=== PATIENT | male | born 1985 | race Caucasian/White ===

== ENCOUNTER 2020-09-01 13:16 | Emergency (ER) | payer BC ==
[~2020-09-01] VITALS: Ht 182.9 cm; Wt 109.0 kg
--- NOTE | 2020-09-01 13:54 | EKG ---
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
--- NOTE | 2020-09-01 14:25 | PHYS DOC ---
Past History Past Medical History: No Pertinent History Past Surgical History: Other Additional Past Surgical Histo: left testicle removed Alcohol Use: None General Adult EDM: Chief Complaint: CHEST PAIN HPI: HPI: Patient is a 34-year-old male who presents with chest pain, shortness of breath that started yesterday. Patient states he was standing in the yard, letting his puppy use the bathroom, when he started having sudden chest pressure. Symptoms started about 2 PM yesterday. "All of a sudden my legs felt like they were going to go out, I was dizzy, sweating, short of breath". Patient reports that all symptoms resolved except he is continued to have shortness of breath, chest pain that radiates to his neck and left arm. Patient reports that pain is worse with movement and trying to take a deep breath. "I feel like the pain gets better if I push on my chest". "I had a hard time sleeping last night because I was so uncomfortable, the pain seems to also get better I feel like my hunch over". Patient describes chest pain today as a pulling or ripping sensation. "Arianna felt very tired especially with exertion". Patient does report a productive cough, started yesterday. Denies recent illness, fever, Covid. Denies nausea/vomiting/diarrhea. Patient states that he has had chest pain in the past and was seeing a national recruiter at that time. "I was a little worried because I have a family history of heart problems". "My dad's, brother , at 37 of a heart attack". Patient is hemodynamically stable upon arrival. Patient health history is hemophilia. Patient reports he smokes 1 pack a day. Review of Systems: Review of Systems: Constitutional: Denies fever or chills Eyes: Denies change in visual acuity HENT: Denies nasal congestion or sore throat Respiratory: Reports productive cough and shortness of breath Cardiovascular: Reports chest pain, describes as a pulling sensation GI: Denies abdominal pain, nausea, vomiting, bloody stools or diarrhea : Denies dysuria Musculoskeletal: Denies back pain or joint pain Integument: Denies rash Neurologic: Denies headache, focal weakness or sensory changes Endocrine: Denies polyuria or polydipsia Lymphatic: Denies swollen glands Psychiatric: Denies depression or anxiety Allergies: Allergies: Allergies Coded Allergies Type Severity Reaction Last Updated Verified codeine Allergy Unknown 09/01/20 Yes Physical Exam: PE: Constitutional: Well developed, well nourished, no acute distress, non-toxic appearance. [] HENT: Normocephalic, atraumatic, bilateral external ears normal, oropharynx moist, no oral exudates, nose normal. [] Eyes: PERRLA, EOMI, conjunctiva normal, no discharge. [] Neck: Normal range of motion, no tenderness, supple, no stridor. [] Cardiovascular:Heart rate regular rhythm, no murmur [] Lungs & Thorax: Bilateral breath sounds clear to auscultation [] Abdomen: Bowel sounds normal, soft, no tenderness Skin: Warm, dry, no erythema, no rash. [] Back: No tenderness, no CVA tenderness. [] Extremities: No tenderness, no cyanosis, no clubbing, ROM intact, no edema. [] Neurologic: Alert and oriented X 3, normal motor function, normal sensory function, no focal deficits noted. [] Psychologic: Affect normal, judgement normal, mood normal. [] Current Patient Data: Labs: Laboratory Tests Test 09/01/20 13:28 Troponin I Quantitative < 0.017 ng/mL (0-0.055) Vital Signs: Vital Signs Date Time Temp Pulse Resp B/P (MAP) Pulse Ox O2 Delivery O2 Flow Rate FiO2 09/01/20 13:17 97.9 79 16 133/80 (97) 96 Room Air EKG: EKG: [] Radiology/Procedures: Radiology/Procedures: []NDICATION: Reason: SHORTNESS OF BREATH / Spl. Instructions: / History: COMPARISON: February 14, 2011 FINDINGS: Single view of chest obtained. Cardiac silhouette is near the upper limits of normal in size. No definite new region of airspace consolidation. IMPRESSION: * No definite new region of airspace consolidation. Electronically signed by: Malcolm Esteban MD (09/01/2020 2:37 PM) [id number] Heart Score: C/O Chest Pain: Yes HEART Score for Chest Pain: HEART Score for Chest Pain Response (Comments) Value History Moderately Suspicious 1 ECG Normal 0 Age < 45 0 Risk Factors No Risk Factors 0 Troponin < Normal Limit 0 Total 1 Risk Factors: Risk Factors: DM, Current or recent (<one month) smoker, HTN, HLP, family history of CAD, obesity. Risk Scores: Score 0 - 3: 2.5% MACE over next 6 weeks - Discharge Home Score 4 - 6: 20.3% MACE over next 6 weeks - Admit for Clinical Observation Score 7 - 10: 72.7% MACE over next 6 weeks - Early Invasive Strategies Course & Med Decision Making: Course & Med Decision Making Pertinent Labs and Imaging studies reviewed. (See chart for details) [] Chest x-ray is negative. EKG shows sinus rhythm, 81 bpm. D-dimer is elevated at 1.18. CTA of chest ordered. Troponin is negative. Heart score of 1. CTA of chest is negative for PE. CTA does show a few areas with lung nodules. Suggested repeat imaging in 3 to 6 months to reassess. Patient given strict instructions to return to the emergency room with worsening symptoms or concerns. Patient given contact information for cardiology for consult. Bienvenido Disclaimer: Dragon Disclaimer: This electronic medical record was generated, in whole or in part, using a voice recognition dictation system. Departure Departure: Impression: Primary Impression: Chest pain made worse by breathing Disposition: 01 DC HOME SELF CARE/HOMELESS Condition: STABLE Referrals: PCP,NO (PCP) Patient Instructions: Chest Pain (Nonspecific), Bfyo-yr-Xrvy Additional Instructions: You were seen in the emergency room today for shortness of breath and chest pain. All of your labs were unremarkable. CTA was negative for acute abnormalities. The CTA does show Multiple bilateral pulmonary nodules and nodular opacities measuring up to 8 mm in size. These are nonspecific and may be inflammatory or infectious in etiology. Follow-up with a chest CT in 3 months i s recommended to exclude underlying neoplasm. I have also included cardiology. Please call and set up an appointment for a consult for further management. Please return to the emergency room with worsening symptoms or concerns. [address] of the [place], [place] [address] EMERGENCY DEPARTMENT GENERAL DISCHARGE INSTRUCTIONS Thank you for coming to [facility] (ED) today and trusting us with you care. We trust that you had a positivie experience in our Emergency Department. If you wish to speak to the department management, you may call the director at [phone]. YOUR FOLLOW UP INSTRUCTIONS ARE FOLLOWS: 1. Do you have a private Doctor? If you do not have a private doctor, please ask for a resource list of physicians or clinics that may be able to assist you with follow up care. 2. The Emergency Physician has interpreted your x-rays. The X-Ray specialist will also review them. If there is a change in the findings, you will be notified in 48 hours when at all possible. 3. A lab test or culture has been done, your results will be reviewed and you will be notified if you need a change in treatment. ADDITIONAL INSTRUCTIONS AND INFORMATION: 1. Your care today has been supervised by a physician who is specially trained in emergency care. Many problems require more than one evaluation for a complete diagnosis and treatment. We recommend that you schedule your follow up appointment as recommended to ensure complete treatment of you illness or injury. If you are unable to obtain follow up care and continue to have a problem, or if your condition worsens, we recommend that you return to the ED. 2. We are not able to safely determine your condition over the phone nor are we able to give sound medical advice over the phone. For these safety reasons, if you call for medical advice we will ask you to come to the ED for further evaluation. 3. If you have any questions regarding these discharge instructions please call the ED at [phone]. SAFETY INFORMATION: In the interest of safety, wellness, and injury prevention; we encourage you to wear your sealbelt, if you smoke; quite smoking, and we encourage family to use a protective helmet for bicycling and other sporting events that present an increased risk for head injury. IF YOUR SYMPTOMS WORSEN OR NEW SYMPTOMS DEVELOP, OR YOU HAVE CONCERNS ABOUT YOUR CONDITION; OR IF YOUR CONDITION WORSENS WHILE YOU ARE WAITING FOR YOUR FOLLOW UP APPOINTMENT; EITHER CONTACT YOUR PRIMARY CARE DOCTOR, THE PHYSICIAN WHOSE NAME AND NUMBER YOU WERE GIVEN, OR RETURN TO THE ED IMMEDIATELY. ZAHEER SIMPSON APRN Sep 01, 2020 14:25
--- NOTE | 2020-09-01 14:40 | RAD ---
INDICATION: Reason: SHORTNESS OF BREATH / Spl. Instructions: / History: COMPARISON: February 14, 2011 FINDINGS: Single view of chest obtained. Cardiac silhouette is near the upper limits of normal in size. No definite new region of airspace consolidation. IMPRESSION: * No definite new region of airspace consolidation. Electronically signed by: Malcolm Esteban MD (09/01/2020 2:37 PM) [id number]
[2020-09-01 14:41] LABS: CALCIUM 9.2 mg/dL (8.5-10.1); CREATININE 1.1 mg/dL (0.7-1.3); GFR 76.6; POTASSIUM 4.1 mmol/L (3.5-5.1)
[2020-09-01 14:54] LABS: ALBUMIN 4.1 g/dL (3.4-5.0); ALBUMIN/GLOBULIN RATIO 1.1 (1.0-1.7); TOTAL BILIRUBIN 0.4 mg/dL (0.2-1.0); TOTAL PROTEIN 7.7 g/dL (6.4-8.2)
[2020-09-01 14:56] LABS: BASO # 0.1 x10^3/uL (0.0-0.2); BASO % 1 % (0-3); EOS # 0.1 x10^3/uL (0.0-0.7); EOS % 2 % (0-3); HEMATOCRIT 48.3 % (39.0-53.0); HEMOGLOBIN 16.4 g/dL (13.0-17.5); LYMPH # 1.9 x10^3/uL (1.0-4.8); LYMPH % 29 % (24-48); MEAN CORPUSCULAR HEMOGLOBIN 30 pg (25-35); MEAN CORPUSCULAR HGB CONC 34 g/dL (31-37); MEAN CORPUSCULAR VOLUME 89 fL (79-100); MONO # 0.8 x10^3/uL (0.0-1.1); MONO % 11 % (0-9); NEUT # 3.8 x10^3uL (1.8-7.7); NEUT % 57 % (31-73); PLATELET COUNT 192 x10^3/uL (140-400); RED BLOOD COUNT 5.43 x10^6/uL (4.30-5.70); RED CELL DISTRIBUTION WIDTH 13.6 % (11.5-14.5); WHITE BLOOD COUNT 6.7 x10^3/uL (4.0-11.0)
[2020-09-01] MEDS: IOHEXOL 350 MG/ML 100 ML VIAL. IV ONE (15:25)
--- NOTE | 2020-09-01 15:54 | RAD ---
EXAM: CT angiography of the chest with intravenous contrast. HISTORY: Shortness of breath. TECHNIQUE: Computed tomographic images of the chest were obtained following the administration of int ravenous contrast according to angiography protocol. Multiplanar reformatting was performed and three dimensional maximum intensity projection images were obtained. *One or more of the following individualized dose reduction techniques were utilized for this examina tion: 1. Automated exposure control. 2. Adjustment of the mA and/or kV according to patient size. 3. Use of iterative reconstruction technique. COMPARISON: None. FINDINGS: There is no evidence of pulmonary embolism. The aorta is normal in caliber. There is no marlys dence of aortic dissection. The left vertebral artery originates likely from the aortic arch, a karan l aortic arch branching variant. There are multiple prominent mediastinal lymph nodes. There are enla rged lateral hilar and perihilar lymph nodes. The heart is normal in size. There is no pneumothorax. There is no pleural effusion. There is spiral posterior dependent and basil ar atelectasis with suspected superimposed air trapping. There is an 8 mm nodule within the posterior right lower lobe. There are 4 mm and 5 mm nodules within the lateral right upper lobe. There is a 7 mm nodule at the posterior right lung apex. There is a 3 mm nodule within the posterior right upper l obe. There is a 5 mm pleural-based nodule within the posterior left lower lobe. There is an adjacent 4 mm nodule within the anterior left lower lobe. There is an 8 mm nodule with adjacent fat within the nodule along the left pleural fissure. There is a 2 mm nodule within the lateral left upper lobe. Th ere is a 3 mm nodule within the posterior medial left upper lobe. There is hepatic steatosis. There is mild hepatosplenomegaly. There is no acute finding involving the upper abdomen. There is no suspicious or acute osseous finding. There are multiple thoracic and uppe r lumbar endplate Schmorl's nodes. IMPRESSION: 1. No evidence of pulmonary embolism. 2. Multiple bilateral pulmonary nodules and nodular opacities measuring up to 8 mm in size. These are nonspecific and may be inflammatory or infectious in etiology. Follow-up with a chest CT in 3 months is recommended to exclude underlying neoplasm. 3. Mediastinal and hilar lymphadenopathy. Attention at the time of follow-up is recommended to confir m stability or resolution. 4. Hepatic steatosis and mild hepatosplenomegaly. Electronically signed by: Bisi Sotomayor MD (09/01/2020 3:51 PM) [facility]
[2020-09-01 16:15] VITALS: BP 130/74
== END 2020-09-01 16:55 | disposition home or self-care (01) ==
LOC: ER 13:16
DX: R07.1 Chest pain on breathing (principal); R42 Dizziness and giddiness; Z88.5 Allergy status to narcotic agent
CPT/HCPCS: 36415; 71045; 71275; 80053; 83880; 84484; 85025; 85379; 93005; 99285; Q9967

== ENCOUNTER 2020-12-23 19:35 | Emergency (ER) | payer BC ==
[~2020-12-23] VITALS: Ht 182.9 cm; Wt 111.2 kg
--- NOTE | 2020-12-23 20:51 | PHYS DOC ---
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 And one will slipped off the ramp and tipped.. I tried to catch it and keep it from falling off.. And it twisted my back.. " Patient is a 35 year old male who presents with above hx and complaints of back injury while attempting to move his Roto-Rooter type machine.. Patient has generalized paraspinal muscle spasms primarily and lower thoracic and upper lumbar sacral area. Does have appreciable pain on palpation of back. Patient denies any problems with defecation or urination. Patient denies any history of fever or chills. Patient denies any history of cancer. No history of recent travel. No specific ill contacts. No history immunosuppression. Patient normally follows with Dr. Lee. Has had past medical history of chest pain and pulmonary nodules. Recent follow-up CT was negative for the PE and pulmonary nodules were unchanged on PET scan. Patient to have a repeat CT in 1 year. Review of Systems: Review of Systems: Constitutional: Denies fever or chills Eyes: Denies change in visual acuity HENT: Denies nasal congestion or sore throat Respiratory: Denies cough or shortness of breath Cardiovascular: Denies chest pain or edema GI: Denies abdominal pain, nausea, vomiting, bloody stools or diarrhea : Denies dysuria Musculoskeletal: Complains of back injury. Integument: Denies rash Neurologic: Denies headache, focal weakness or sensory changes Endocrine: Denies polyuria or polydipsia Lymphatic: Denies swollen glands Psychiatric: Denies depression or anxiety Family History: Family History: Noncontributory to presentation, does have a family history of heart disease father and brother from MIs. Current Medications: Current Meds: See nursing for home meds Allergies: Allergies: Allergies Coded Allergies Type Severity Reaction Last Updated Verified codeine Allergy Unknown 12/23/20 Yes Physical Exam: PE: Constitutional: An moderate acute distress, non-toxic appearance. [] HENT: Normocephalic, atraumatic, bilateral external ears normal, oropharynx moist, no oral exudates, nose normal. [] Eyes: PERRLA, EOMI, conjunctiva normal, no discharge. [] Neck: Normal range of motion, no tenderness, supple, no stridor. [] Cardiovascular:Heart rate regular rhythm, no murmur [] Lungs & Thorax: Bilateral breath sounds equal apex with scattered wheezing on auscultation [] Abdomen: Bowel sounds normal, soft, no tenderness, no masses, no pulsatile masses. Obese. Missing left testicle Skin: Warm, dry, no erythema, no rash. [] Back: Thoracic and lumbar tenderness, no CVA tenderness. [] Does have appreciable muscle spasms particularly between T5 down to L1.. Extremities: No tenderness, no cyanosis, no clubbing, ROM intact, no edema. No cording appreciated. Neurologic: Alert and oriented X 3, normal motor function, normal sensory function, no focal deficits noted. DTRs +2 patella. No saddle loss romina reciated. Psychologic: Affect anxious,, judgement normal, mood normal. [] Current Patient Data: Vital Signs: Vital Signs Date Time Temp Pulse Resp B/P (MAP) Pulse Ox O2 Delivery O2 Flow Rate FiO2 12/23/20 20:20 98.8 85 18 134/93 99 Room Air EKG: EKG: [] Radiology/Procedures: Radiology/Procedures: [][place] [address] IMAGING REPORT Signed PATIENT: DUONG SOLITARIO ACCOUNT: [id number] : 1985 LOCATION: ER AGE: 35 SEX: M EXAM STATUS: REG ER ORD. PHYSICIAN: ROBERT JAMES MD REASON: large roto machine fell PROCEDURE: CT LUMBAR SPINE WO CONTRAST Exam: CT the thoracic and lumbar spine without contrast INDICATION: Trauma to back TECHNIQUE: Sequential axial images through the thoracic and lumbar spine obtained without IV contrast. Sagittal and coronal reformatted images were reconstructed from the axial data and reviewed. Exposure: One or more of the following in the visualized dose reduction techniques were utilized for this examination: 1. Automated exposure control 2. Adjustment of the MA and/or KV according to patient size 3. Use of iterative of reconstructive technique Comparisons: None FINDINGS: Thoracic spine: Vertebral body heights and alignment are well-maintained. Fracture to the thoracic spine is not identified. No significant spondylotic change in the thoracic spine. Visualized paraspinal soft tissues are unremarkable. Lumbar spine: Vertebral body heights and alignment are well-maintained. Fracture to the lumbar spine is not identified. No significant spondylotic changes lumbar spine. Visualized paraspinal soft tissues are unremarkable. IMPRESSION: Negative CT thoracic and lumbar spine for acute traumatic injury. Electronically signed by: Rubina Bullock MD (12/23/2020 9:59 PM) [facility] DI[facility]ATED AND SIGNED BY: RUBINA BULLOCK MD DATE: 12/23/202155 CC: ROBERT JAMES MD; MAKEDA LEE MD ~MTH0 [address] [place] [address] IMAGING REPORT Signed PATIENT: DUONG SOLITARIO ACCOUNT: [id number] : 1985 LOCATION: ER AGE: 35 SEX: M EXAM STATUS: REG ER ORD. PHYSICIAN: ROBERT JAMES MD REASON: large roto machine fell PROCEDURE: CT THORACIC SPINE WO CONTRAST Exam: CT the thoracic and lumbar spine without contrast INDICATION: Trauma to back TECHNIQUE: Sequential axial images through the thoracic and lumbar spine obtained without IV contrast. Sagittal and coronal reformatted images were reconstructed from the axial data and reviewed. Exposure: One or more of the following in the visualized dose reduction techniques were utilized for this examination: 1. Automated exposure control 2. Adjustment of the MA and/or KV according to patient size 3. Use of iterative of reconstructive technique Comparisons: None FINDINGS: Thoracic spine: Vertebral body heights and alignment are well-maintained. Fracture to the thoracic spine is not identified. No significant spondylotic change in the thoracic spine. Visualized paraspinal soft tissues are unremarkable. Lumbar spine: Vertebral body heights and alignment are well-maintained. Fracture to the lumbar spine is not identified. No significant spondylotic changes lumbar spine. Visualized paraspinal soft tissues are unremarkable. IMPRESSION: Negative CT thoracic and lumbar spine for acute traumatic injury. Electronically signed by: Rubina Bullock MD (12/23/2020 9:59 PM) [facility]ATED AND SIGNED BY: RUBINA BULLOCK MD DATE: 12/23/202155 CC: ROBERT JAMES MD; MAKEDA LEE MD ~MTH0 0 Heart Score: C/O Chest Pain: N/A Risk Factors: Risk Factors: DM, Current or recent (<one month) smoker, HTN, HLP, family history of CAD, obesity. Risk Scores: Score 0 - 3: 2.5% MACE over next 6 weeks - Discharge Home Score 4 - 6: 20.3% MACE over next 6 weeks - Admit for Clinical Observation Score 7 - 10: 72.7% MACE over next 6 weeks - Early Invasive Strategies Course & Med Decision Making: Course & Med Decision Making Pertinent Labs and Imaging studies reviewed. (See chart for details) Patient to use ice packs as needed. Patient to rest. Patient to get gentle massage to spasmatic muscles. Patient take Flexeril 10 mg 3 times a day for muscle spasms. Take Tylenol and ibuprofen for pain. For marked pain may take Vicoprofen up to 4 times a day. Follow-up primary care. Return if any co ncerns. Impression: 1. Sprain strain thoracic and lumbar 2. History of recent diagnosis of pulmonary nodules [] Dragon Disclaimer: Dragon Disclaimer: This electronic medical record was generated, in whole or in part, using a voice recognition dictation system. Departure Departure: Referrals: MAKEDA LEE MD (PCP) Scripts Hydrocodone/Ibuprofen (HYDROCODONE-IBUPROFEN 7.5-200 ) 1 Each Tablet 1 TAB PO PRN Q6HRS PRN for PAIN, #30 TAB 0 Refills Prov: ROBERT JAMES MD 12/23/20 Cyclobenzaprine Hcl (CYCLOBENZAPRINE HCL) 10 Mg Tablet 10 MG PO TID PRN PRN for spasms, #30 TAB Prov: ROBERT JAMES MD 12/23/20 Dragon Disclaimer This chart was dictated in whole or in part using Voice Recognition software in a busy, high-work load, and often noisy Emergency Department environment. It may contain unintended and wholly unrecognized errors or omissions. ROBERT JAMES MD Dec 23, 2020 20:51
[2020-12-23] MEDS ORDERED: CYCL-331 PO (21:11)
[2020-12-23] MEDS ORDERED: HYDR-1179 PO (21:13)
[2020-12-23] MEDS ORDERED: MORPHINE SULFATE 10 MG/ML SYRINGE. SQ ONE (21:15)
[2020-12-23] MEDS ORDERED: ORPHENADRINE CITRATE 60 MG/2 ML VIAL. IM ONE (21:15)
[2020-12-23] MEDS ORDERED: KETOROLAC 60 MG/2 ML VIAL. IM ONE (21:15)
--- NOTE | 2020-12-23 22:01 | RAD ---
Exam: CT the thoracic and lumbar spine without contrast INDICATION: Trauma to back TECHNIQUE: Sequential axial images through the thoracic and lumbar spine obtained without IV contrast . Sagittal and coronal reformatted images were reconstructed from the axial data and reviewed. Exposure: One or more of the following in the visualized dose reduction techniques were utilized for this examination: 1. Automated exposure control 2. Adjustment of the MA and/or KV according to patient size 3. Use of iterative of reconstructive technique Comparisons: None FINDINGS: Thoracic spine: Vertebral body heights and alignment are well-maintained. Fracture to the thoracic spine is not identified. No significant spondylotic change in the thoracic spine. Visualized paraspinal soft tissues are unremarkable. Lumbar spine: Vertebral body heights and alignment are well-maintained. Fracture to the lumbar spine is not identified. No significant spondylotic changes lumbar spine. Visualized paraspinal soft tissues are unremarkable. IMPRESSION: Negative CT thoracic and lumbar spine for acute traumatic injury. Electronically signed by: Rubina Banks MD (12/23/2020 9:59 PM) JA[facility]Y
[2020-12-23 22:30] VITALS: BP 132/73
== END 2020-12-23 22:32 | disposition home or self-care (01) ==
LOC: ER 19:35
DX: S33.5XXA Sprain of ligaments of lumbar spine, initial encounter (principal); S23.3XXA Sprain of ligaments of thoracic spine, initial encounter; M62.830 Muscle spasm of back; M19.90 Unspecified osteoarthritis, unspecified site; F17.210 Nicotine dependence, cigarettes, uncomplicated; Z88.5 Allergy status to narcotic agent; X50.9XXA Other and unspecified overexertion or strenuous movements or postures, initial encounter; Y93.89 Activity, other specified; Y92.89 Other specified places as the place of occurrence of the external cause; Y99.8 Other external cause status
CPT/HCPCS: 72128; 72131; 96372; 96374; 99285; J1885; J2060; J2270; J2360

== ENCOUNTER 2020-12-28 08:17 | Emergency (ER) | payer BC ==
[~2020-12-28] VITALS: Ht 182.9 cm; Wt 111.2 kg
[~2020-12-28 08:17] MED LIST: CYCL-331 PO; HYDR-1179 PO
[2020-12-28 08:21] VITALS: BP 165/99
--- NOTE | 2020-12-28 09:12 | PHYS DOC ---
Past History Past Medical History: No Pertinent History, Arthritis, Sciatica Past Surgical History: Other Additional Past Surgical Histo: left testicle removed Smoking: Cigarettes Alcohol Use: None General Adult EDM: Chief Complaint: LOWER BACK PAIN OR INJURY HPI: HPI: Patient is a 35 year old male who presents with frequent urination and lower back pain. Patient states that he was seen here in the emergency department last week and was given some hydrocodone and Flexeril for right shoulder pain after a series of x-rays. Ever since then has been having frequent urination. Some lower back aches in the bilateral paraspinal lumbar region. States that he got up 6 times last night to urinate. Has never had similar sensation. He has been told that this can be a sign of diabetes so presented to the emergency dep artment to get checked out. Denies any fevers or chills. No severe chest pain. Does have some mild shortness of breath especially with exertion. Is feeling very fatigued. He was exposed to Covid last week. A coworker tested positive last . 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 He was vaccinated with Materna. Received a second shot in August. Review of Systems: Review of Systems: Constitutional: Denies fever or chills Eyes: Denies change in visual acuity HENT: Denies nasal congestion or sore throat Respiratory: Denies cough or shortness of breath Cardiovascular: Denies chest pain or edema GI: Denies abdominal pain, nausea, vomiting, bloody stools or diarrhea : Denies dysuri. + frequency Musculoskeletal:+ back pain. No joint pain Integument: Denies rash Neurologic: Denies headache, focal weakness or sensory changes Endocrine: Denies polyuria or polydipsia Lymphatic: Denies swollen glands Psychiatric: Denies depression or anxiety Allergies: Allergies: Allergies Coded Allergies Type Severity Reaction Last Updated Verified codeine Allergy Unknown 12/23/20 Yes Physical Exam: PE: Constitutional: well appearing, non-toxic appearance. [] HENT: Normocephalic, atraumatic, bilateral external ears normal, oropharynx moist, no oral exudates, nose normal. [] Eyes: PERRLA, EOMI, conjunctiva normal, no discharge. [] Neck: Normal range of motion, no tenderness, supple, no stridor. [] Cardiovascular:Heart rate regular rhythm, no murmur [] Lungs & Thorax: Bilateral breath sounds clear to auscultation [] Abdomen: Bowel sounds normal, soft, no tenderness, no masses, no pulsatile masses. [] Skin: Warm, dry, no erythema, no rash. [] Back: No tenderness, no CVA tenderness. [] Extremities: No tenderness, no cyanosis, no clubbing, ROM intact, no edema. [] Neurologic: Alert and oriented X 3, normal motor function, normal sensory function, no focal deficits noted. [] Psychologic: Affect normal, judgement normal, mood normal. [] Current Patient Data: Vital Signs: Vital Signs Date Time Temp Pulse Resp B/P (MAP) Pulse Ox O2 Delivery O2 Flow Rate FiO2 12/28/20 08:21 98.1 61 16 165/99 97 Room Air EKG: EKG: na[] Radiology/Procedures: Radiology/Procedures: CXR [] Impressions: [place] [address] IMAGING REPORT Signed PATIENT: DUONG SOLITARIO ACCOUNT: [id number] : 1985 LOCATION: ER AGE: 35 SEX: M EXAM STATUS: REG ER ORD. PHYSICIAN: SUKHDEV ROBLES MD REASON: covid exposure, sob PROCEDURE: CHEST AP ONLY EXAM: AP View of the chest DATE: 12/28/2020 9:10 AM INDICATION: Reason: covid exposure, sob / Spl. Instructions: / History: COMPARISON: 09/01/2020 FINDINGS: The heart is not enlarged. Mediastinal and hilar contours are normal. No focal parenchymal airspace opacity. No pleural effusion or pneumothorax. IMPRESSION: 1. No radiographic evidence for acute cardiopulmonary process. Electronically signed by: Bandar Martines MD (12/28/2020 9:40 AM) [id number] DICTATED AND SIGNED BY: BANDAR MARTINES MD DATE: 12/28/20 0934 CC: SUKHDEV ROBLES MD; MAKEDA LEE MD ~MTH0 0 Heart Score: C/O Chest Pain: N/A Risk Factors: Risk Factors: DM, Current or recent (<one month) smoker, HTN, HLP, family his tory of CAD, obesity. Risk Scores: Score 0 - 3: 2.5% MACE over next 6 weeks - Discharge Home Score 4 - 6: 20.3% MACE over next 6 weeks - Admit for Clinical Observation Score 7 - 10: 72.7% MACE over next 6 weeks - Early Invasive Strategies Course & Med Decision Making: Course & Med Decision Making Pertinent Labs and Imaging studies reviewed. (See chart for details) Patient is a 35-year-old male who presents with several days of urinary frequency. States that it started after taking cyclobenzaprine and hydrocodone for right shoulder pain. On arrival is afebrile, hemodynamically stable. Well- appearing on examination. Abdomen is nontender. No fevers or chills, or dysuria to suggest a urinary tract infection. Has been drinking lots of fluids as well which may be a contributing factor. Will check labs to ensure no evidence of diabetes insipidus. Sodium was normal reassuring against this. UA did not show any signs of infection. Considering new onset diabetes with polyuria, but no evidence of this on labs as well. Feel patient is safe for discharge. He does not have a primary care doctor so I will give him phone number for a place to establish care. Bienvenido Disclaimer: Dragnyasia Disclaimer: This electronic medical record was generated, in whole or in part, using a voice recognition dictation system. Departure Departure: Disposition: HOME / SELF CARE / HOMELESS Condition: STABLE Referrals: MAKEDA LEE MD (PCP) Since you do not have a PCP, please call the number for the [facility] at [phone]. Additional Instructions: Your labs and urine test were reassuring. There was no signs of urinary tract infection or new onset diabetes. I am unsure why you are having such frequent urination. I would like you to follow-up with a primary care doctor. Please call the number attached to establish with a PCP. If you develop fever/chills, abdominal pain, other new/concerning symptoms please return to the emergency department for reevaluation. SUKHDEV ROBLES MD Dec 28, 2020 09:12
--- NOTE | 2020-12-28 09:42 | RAD ---
EXAM: AP View of the chest DATE: 12/28/2020 9:10 AM INDICATION: Reason: covid exposure, sob / Spl. Instructions: / History: COMPARISON: 09/01/2020 FINDINGS: The heart is not enlarged. Mediastinal and hilar contours are normal. No focal parenchymal airspace opacity. No pleural effusion or pneumothorax. IMPRESSION: 1. No radiographic evidence for acute cardiopulmonary process. Electronically signed by: Bandar Pino MD (12/28/2020 9:40 AM) [id number]
[2020-12-28 10:35] LABS: BASO # 0.1 x10^3/uL (0.0-0.2); BASO % 1 % (0-3); EOS # 0.3 x10^3/uL (0.0-0.7); EOS % 3 % (0-3); HEMATOCRIT 46.7 % (39.0-53.0); LYMPH # 2.6 x10^3/uL (1.0-4.8); LYMPH % 32 % (24-48); MEAN CORPUSCULAR HEMOGLOBIN 31 pg (25-35); MEAN CORPUSCULAR HGB CONC 34 g/dL (31-37); MEAN CORPUSCULAR VOLUME 89 fL (79-100); MONO # 0.6 x10^3/uL (0.0-1.1); MONO % 8 % (0-9); NEUT # 4.5 x10^3uL (1.8-7.7); NEUT % 56 % (31-73); PLATELET COUNT 192 x10^3/uL (140-400); RED BLOOD COUNT 5.23 x10^6/uL (4.30-5.70); RED CELL DISTRIBUTION WIDTH 13.9 % (11.5-14.5)
[2020-12-28 10:45] LABS: BILIRUBIN,URINE NEG (NEG); CLARITY,URINE CLEAR; COLOR,URINE YELLOW; GLUCOSE,URINE NEG (NEG); NITRITE,URINE NEG (NEG); UROBILINOGEN,URINE 0.2 mg/dL (0.2 mg/dL)
[2020-12-28 10:46] LABS: BACTERIA,URINE 0 /HPF (0-FEW); HYALINE CASTS, URINE OCC /HPF
[2020-12-28 10:59] LABS: CALCIUM 9.3 mg/dL (8.5-10.1); CREATININE 1.1 mg/dL (0.7-1.3); GFR 76.2
[2020-12-28 11:05] LABS: ALBUMIN 3.5 g/dL (3.4-5.0); ALBUMIN/GLOBULIN RATIO 1.1 (1.0-1.7); TOTAL BILIRUBIN 0.4 mg/dL (0.2-1.0); TOTAL PROTEIN 6.6 g/dL (6.4-8.2)
== END 2020-12-28 12:32 | disposition home or self-care (01) ==
LOC: ER 08:17
DX: R35.0 Frequency of micturition (principal); M54.5 Low back pain; R06.02 Shortness of breath; M19.90 Unspecified osteoarthritis, unspecified site; F17.210 Nicotine dependence, cigarettes, uncomplicated; Z20.822 Contact with and (suspected) exposure to COVID-19; Z88.5 Allergy status to narcotic agent
CPT/HCPCS: 71045; 80053; 81001; 85025; 87426; 99284; C9803; U0003

== ENCOUNTER 2021-06-15 07:35 | Emergency (ER) | payer BC ==
[~2021-06-15] VITALS: Ht 182.9 cm; Wt 111.2 kg
[~2021-06-15 07:35] MED LIST changes: -CYCL-331 PO; +CYCL10TA19 PO
[2021-06-15 07:45] VITALS: BP 135/74
--- NOTE | 2021-06-15 08:00 | PHYS DOC ---
Past History Past Medical History: No Pertinent History, Arthritis, Sciatica Past Surgical History: Other Additional Past Surgical Histo: left testicle removed Smoking: Cigarettes Alcohol Use: Rarely General Adult EDM: Chief Complaint: GENERALIZED BODY ACHES HPI: HPI: 35-year-old male presents with fever, body aches, fatigue. He is concerned about COVID-19. The patient is vaccinated. He had a fever of 101 last night. He would like to be tested for influenza as he states this feels like the flu he has had in the past. He has no other specific complaints at this time. Review of Systems: Review of Systems: Constitutional: Body aches, fever, fatigue. Eyes: Denies change in visual acuity HENT: Denies nasal congestion or sore throat Respiratory: Cough without shortness of breath Cardiovascular: Denies chest pain or edema GI: Denies abdominal pain, nausea, vomiting, bloody stools or diarrhea : Denies dysuria Musculoskeletal: Denies back pain or joint pain Integument: Denies rash Neurologic: Denies headache, focal weakness or sensory changes Endocrine: Denies polyuria or polydipsia Lymphatic: Denies swollen glands Psychiatric: Denies depression or anxiety Allergies: Allergies: Allergies Coded Allergies Type Severity Reaction Last Updated Verified codeine Allergy Unknown 12/23/20 Yes Physical Exam: PE: Constitutional: Well developed, well nourished, obese, no acute distress, non- toxic appearance. [] HENT: Normocephalic, atraumatic, bilateral external ears normal, oropharynx moist, no oral exudates, nose normal. [] Eyes: PERRLA, EOMI, conjunctiva normal, no discharge. [] Neck: Normal range of motion, no tenderness, supple, no stridor. [] Cardiovascular: Heart rate regular rhythm, no murmur [] Lungs & Thorax: Bilateral breath sounds clear to auscultation [] Abdomen: Bowel sounds normal, soft, no tenderness, no masses, no pulsatile masses. [] Skin: Warm, dry, no erythema, no rash. [] Back: No tenderness, no CVA tenderness. [] Extremities: No tenderness, no cyanosis, no clubbing, ROM intact, no edema. [] Neurologic: Alert and oriented X 3, normal motor function, normal sensory function, no focal deficits noted. [] Psychologic: Affect normal, judgement normal, mood normal. [] Current Patient Data: Vital Signs: Vital Signs Date Time Temp Pulse Resp B/P (MAP) Pulse Ox O2 Delivery O2 Flow Rate FiO2 06/15/21 07:45 98.2 94 16 135/74 (94) 98 Room Air EKG: EKG: [] Radiology/Procedures: Radiology/Procedures: [] Heart Score: C/O Chest Pain: N/A Risk Factors: Risk Factors: DM, Current or recent (<one month) smoker, HTN, HLP, family history of CAD, obesity. Risk Scores: Score 0 - 3: 2.5% MACE over next 6 weeks - Discharge Home Score 4 - 6: 20.3% MACE over next 6 weeks - Admit for Clinical Observation Score 7 - 10: 72.7% MACE over next 6 weeks - Early Invasive Strategies Course & Med Decision Making: Course & Med Decision Making Pertinent Labs and Imaging studies reviewed. (See chart for details) We have tested the patient for COVID-19 and influenza. Patient will be made aware of these results when they are available. The patient's rapid flu was negative. I have advised quarantining and supportive care. He is stable for discharge at this time. [] Dragon Disclaimer: Dragon Disclaimer: This electronic medical record was generated, in whole or in part, using a voice recognition dictation system. Departure Departure: Impression: Primary Impression: COVID-19 Disposition: HOME / SELF CARE / HOMELESS Condition: STABLE Referrals: MAKEDA LEE MD (PCP) Patient Instructions: Viral Syndrome Additional Instructions: You have been tested for or diagnosed with COVID-19. It is an infection caused by a new type of coronavirus. COVID-19 will cause cold-like or mild flu symptoms in most. It can cause more severe symptoms like problems breathing in some. There is no treatment for COVID-19. The body will clear the infection over time. Self-care will help to ease discomfort. Steps to Take: Self-Care Rest as needed. Healthy habits may help you feel better. Steps include: Choose healthy foods including fruits and vegetables. Drink water throughout the day. Get plenty of sleep each night. If you smoke, try to quit. It may ease breathing. Avoid alcohol. Keep Others Healthy The virus can spread to others. Droplets are released every time you sneeze or cough. The droplets can get into the mouth, nose, or eyes of people near you and lead to infection. To lower the chances of spreading COVID-19 to others: Stay at home until your doctor has said it is safe to leave. If you tested po sitive this will mean staying isolated until both of the following are true: At least 7 days have passed since the start of illness. You are free of fever for at least 72 hours without the use of medicine. During this time: - Avoid public areas, events, or transportation. Do not return to work or school until your doctor has said it is safe to do so. - Call ahead if you need to go to a medical center. Let them know you may have COVID-19. It will help them guide you where to go. They may also ask you to wear a facemask when you come to the office. - If you call for emergency medical services, let them know you may have COVID- 19. While at home: - Try to avoid close contact with others. Stay about 6 feet away. - If possible, spend most of your time in a separate room from others. - Use a face mask if you will be in close contact with others such as sharing a room or vehicle. - Have someone wipe down common surfaces in the home. Use household certified scrum master every day on areas like doorknobs, counters, or sinks. - Cough or sneeze into a tissue. Throw the tissue away right after use. If a tissue is not available, cough or sneeze into your elbow. - Wash your hands often. Wash them after sneezing or coughing. Use soap and water and wash for at least 20 seconds. Alcohol based hand kettle cleaner can be used if soap and water is not available. - Do not prepare food for others. Avoid sharing personal items like forks, spoons, or toothbrushes. - Avoid close contact with pets while you are sick. There is no evidence of the virus passing to pets. This is a safety step until more is known about this virus. Isolation can be frustrating. Social interaction can help. Keep in touch with friends and family through phone and tech options. You can still interact with others in your home, just keep a safe distance of about 6 feet. Follow-up: Your doctors office will check in with you to see if there are any changes in your health. You may be asked to keep track of symptoms to share with them. They will also let you know when you are clear to be in public again. Problems to Look Out For: Contact your doctor if your recovery is not going as you expect. Get emergency care if you have problems such as: - Trouble breathing - Nonstop chest pain or pressure - Changes in awareness, confusion, or problems waking - Lips or face have bluish color - Worsening of symptoms If you think you have an emergency, call for emergency medical services right away. As taken from [facility] LUCI HAY DO Jun 15, 2021 08:00
[2021-06-15 08:27] LABS: INFLUENZA A PATIENT NEGATIVE (NEGATIVE); INFLUENZA B PATIENT NEGATIVE (NEGATIVE)
== END 2021-06-15 08:42 | disposition home or self-care (01) ==
LOC: ER 07:35
DX: U07.1 COVID-19 (principal); M19.90 Unspecified osteoarthritis, unspecified site; F17.210 Nicotine dependence, cigarettes, uncomplicated; Z88.5 Allergy status to narcotic agent
CPT/HCPCS: 87426; 87804; 99283

== ENCOUNTER 2021-08-20 12:41 | Emergency (ER) | payer BC ==
[~2021-08-20] VITALS: Ht 182.9 cm; Wt 111.4 kg
--- NOTE | 2021-08-20 13:44 | RAD ---
XR KNEE 3 VIEWS_RT History: Reason: fall down stair, right arm pain / Spl. Instructions: / History: Technique: 3 views right knee Comparison: None. Findings: No dislocation. No acute fracture. No significant knee joint effusion. Impression: 1. No acute osseous abnormality. Electronically signed by: Casa Sadler DO (08/20/2021 1:42 PM) [id number]
--- NOTE | 2021-08-20 13:45 | RAD ---
XR FOREARM_RIGHT 2 VIEWS History: Reason: fall down stair, right arm pain / Spl. Instructions: / History: Technique: 2 views right forearm Comparison: None. Findings: No dislocation. No acute fracture. Posterior forearm soft tissue swelling. Impression: 1. No acute osseous abnormality. 2. Posterior forearm soft tissue swelling. Electronically signed by: Casa Sadler DO (08/20/2021 1:43 PM) [id number]
--- NOTE | 2021-08-20 13:46 | RAD ---
XR HUMERUS_RT 2 VIEWS History: Reason: fall down stair, right arm pain / Spl. Instructions: / History: Technique: 2 views right humerus Comparison: None. Findings: No dislocation. No acute fracture. Impression: 1. No acute osseous abnormality. Electronically signed by: Casa Sadler DO (08/20/2021 1:44 PM) [id number]
--- NOTE | 2021-08-20 13:55 | PHYS DOC ---
Past History Past Medical History: No Pertinent History, Arthritis, Sciatica Additional Past Medical Histor: pt did have covid in June 2021 Past Surgical History: Other Additional Past Surgical Histo: left testicle removed; left hand Smoking: Cigarettes Alcohol Use: None General Adult EDM: Chief Complaint: MULTIPLE TRAUMA/FALL HPI: HPI: Patient is a 35-year-old male coming in after a fall. Patient states abdominal somewhat wooden steps and slid down his right side. Patient dates he hit his head several times but denies any loss of consciousness. Was able to ambulate afterwards. Complaining of pain on his right head, right neck, right arm, and right knee. Review of Systems: Review of Systems: All other systems within normal limits except for as noted in the HPI Allergies: Allergies: Allergies Coded Allergies Type Severity Reaction Last Updated Verified codeine Allergy Unknown 12/23/20 Yes Physical Exam: PE: Constitutional: Well developed, well nourished, no acute distress, non-toxic appearance. [] HENT: Normocephalic, atraumatic, bilateral external ears normal, nose normal. [] Eyes: PERRLA, conjunctiva normal, no discharge. [] Neck: No rigidity, supple, no stridor. [] Cardiovascular: Regular rate and rhythm, brisk cap refill [] Lungs & Thorax: Non labored symmetric respirations, no tachypnea or respiratory distress [] Abdomen: Soft, nondistended. Skin: Warm, dry, no erythema, no rash. [] Back: Unremarkable Extremities: No deformities, range of motion grossly intact, no lower extremity edema. Noticeable swelling over right lateral knee. Tenderness over entire right upper arm, decreased range of motion of right wrist secondary to pain [] Neurologic: Alert and oriented X 3, no focal deficits noted. [] Psychologic: Affect normal, judgement normal, mood normal. [] Current Patient Data: Vital Signs: Vital Signs Date Time Temp Pulse Resp B/P (MAP) Pulse Ox O2 Delivery O2 Flow Rate FiO2 08/20/21 12:45 97.7 91 18 141/96 (111) 97 Room Air EKG: EKG: [] Radiology/Procedures: Radiology/Procedures: [][address] [address] IMAGING REPORT Signed PATIENT: DUONG SOLITARIO ACCOUNT: [id number] : 1985 LOCATION: ER AGE: 35 SEX: M EXAM STATUS: REG ER ORD. PHYSICIAN: NELLY DONNELLY MD REASON: fall down stair, right arm pain PROCEDURE: KNEE RIGHT 3V XR KNEE 3 VIEWS_RT History: Reason: fall down stair, right arm pain / Spl. Instructions: / History: Technique: 3 views right knee Comparison: None. Findings: No dislocation. No acute fracture. No significant knee joint effusion. Impression: 1. No acute osseous abnormality. Electronically signed by: Casa Sadler DO (08/20/2021 1:42 PM) [id number] DICTATED AND SIGNED BY: CASA SADLER DO DATE: 08/20/21 1346 CC: NELLY DONNELLY MD; MAKEDA LEE MD ~ [address] [address] IMAGING REPORT Signed PATIENT: DUONG SOLITARIO ACCOUNT: [id number] : 1985 LOCATION: ER AGE: 35 SEX: M EXAM STATUS: REG ER ORD. PHYSICIAN: NELLY DONNELLY MD REASON: fall down stair, right arm pain PROCEDURE: HUMERUS RIGHT XR HUMERUS_RT 2 VIEWS History: Reason: fall down stair, right arm pain / Spl. Instructions: / History: Technique: 2 views right humerus Comparison: None. Findings: No dislocation. No acute fracture. Impression: 1. No acute osseous abnormality. Electronically signed by: Casa Sadler DO (08/20/2021 1:44 PM) [id number] DICTATED AND SIGNED BY: CASA SADLER DO DATE: 08/20/21 8579 CC: NELLY DONNELLY MD; MAKEDA LEE MD ~ [address] [address] IMAGING REPORT Signed PATIENT: DUONG SOLITARIO ACCOUNT: [id number] : 1985 LOCATION: ER AGE: 35 SEX: M EXAM STATUS: REG ER ORD. PHYSICIAN: NELLY DONNELLY MD REASON: fall down stairs PROCEDURE: CT HEAD AND CERVICAL SPINE WO CT HEAD AND C-SPINE WO History: Fall downstairs. Pain. Comparison: None. Technique: Noncontrast CT of the head and cervical spine. Findings: CT HEAD: There is no evidence for intracranial mass or hemorrhage. There is no hydrocephalus or midline shift. No abnormal extra-axial fluid collections are present. No evidence of acute territorial infarction. The visualized paranasal sinuses and mastoid air cells are clear. The skull and scalp are within normal limits. CT CERVICAL SPINE: There is no evidence for fracture in the cervical spine. Alignment is normal. Mild degenerative disc disease at C5-C6. No destructive osseous lesions are seen. Limited evaluation of the soft tissues of the neck and of the upper chest is unremarkable. Impression: 1. No acute intracranial findings. 2. No acute osseous abnormality in the cervical spine. ------- Exposure: One or more of the following individualized dose reduction techniques were utilized for this examination: 1. Automated exposure control 2. Adjustment of the mA and/or kV according to patient size 3. Use of iterative reconstruction technique. Electronically signed by: Juan Smyth MD (08/20/2021 2:22 PM) [id number] DICTATED AND SIGNED BY: JUAN SMYTH MD DATE: 08/20/211348 CC: NELLY DONNELLY MD; MAKEDA LEE MD ~ [place] [address] IMAGING REPORT Signed PATIENT: DUONG SOLITARIO ACCOUNT: [id number] : 1985 LOCATION: ER AGE: 35 SEX: M EXAM STATUS: REG ER ORD. PHYSICIAN: NELLY DONNELLY MD REASON: fall down stair, right arm pain PROCEDURE: FOREARM RIGHT XR FOREARM_RIGHT 2 VIEWS History: Reason: fall down stair, right arm pain / Spl. Instructions: / History: Technique: 2 views right forearm Comparison: None. Findings: No dislocation. No acute fracture. Posterior forearm soft tissue swelling. Impression: 1. No acute osseous abnormality. 2. Posterior forearm soft tissue swelling. Electronically signed by: Casa Sadler DO (08/20/2021 1:43 PM) [id number] DICTATED AND SIGNED BY: CASA SADLER DO DATE: 08/20/21 1342 CC: NELLY DONNELLY MD; MAKEDA LEE MD ~ Heart Score: C/O Chest Pain: No Risk Factors: Risk Factors: DM, Current or recent (<one month) smoker, HTN, HLP, family history of CAD, obesity. Risk Scores: Score 0 - 3: 2.5% MACE over next 6 weeks - Discharge Home Score 4 - 6: 20.3% MACE over next 6 weeks - Admit for Clinical Observation Score 7 - 10: 72.7% MACE over next 6 weeks - Early Invasive Strategies Course & Med Decision Making: Course & Med Decision Making Pertinent Labs and Imaging studies reviewed. (See chart for details) [] Dragon Disclaimer: Dragon Disclaimer: This electronic medical record was generated, in whole or in part, using a voice recognition dictation system. Departure Departure: Impression: Primary Impression: Fall down stairs Disposition: HOME / SELF CARE / HOMELESS Condition: STABLE Referrals: MAKEDA LEE MD (PCP) Patient Instructions: RICE - Routine Care for Injuries NELLY DONNELLY MD Aug 20, 2021 13:55
--- NOTE | 2021-08-20 14:25 | RAD ---
CT HEAD AND C-SPINE WO History: Fall downstairs. Pain. Comparison: None. Technique: Noncontrast CT of the head and cervical spine. Findings: CT HEAD: There is no evidence for intracranial mass or hemorrhage. There is no hydrocephalus or midline shift. No abnormal extra-axial fluid collections are present. No evidence of acute territorial infarction. The visualized paranasal sinuses and mastoid air cells are clear. The skull and scalp are within normal limits. CT CERVICAL SPINE: There is no evidence for fracture in the cervical spine. Alignment is normal. Mild degenerative disc disease at C5-C6. No destructive osseous lesions are seen. Limited evaluation of the soft tissues of the neck and of the upper chest is unremarkable. Impression: 1. No acute intracranial findings. 2. No acute osseous abnormality in the cervical spine. ------- Exposure: One or more of the following individualized dose reduction techniques were utilized for thi s examination: 1. Automated exposure control 2. Adjustment of the mA and/or kV according to patient size 3. Use of iterative reconstruction technique. Electronically signed by: Juan Stewart MD (08/20/2021 2:22 PM) [id number]
[2021-08-20 15:05] VITALS: BP 124/86
== END 2021-08-20 15:05 | disposition home or self-care (01) ==
LOC: ER 12:41
DX: R51.9 Headache, unspecified (principal); M54.2 Cervicalgia; M79.601 Pain in right arm; M25.561 Pain in right knee; R22.41 Localized swelling, mass and lump, right lower limb; M19.90 Unspecified osteoarthritis, unspecified site; F17.210 Nicotine dependence, cigarettes, uncomplicated; Z88.5 Allergy status to narcotic agent; W10.8XXA Fall (on) (from) other stairs and steps, initial encounter; Y93.89 Activity, other specified; Y92.89 Other specified places as the place of occurrence of the external cause; Y99.8 Other external cause status
CPT/HCPCS: 70450; 72125; 73060; 73090; 73562; 99284